=== PATIENT | female | born 1960 | race Hispanic/Latino ===

== ENCOUNTER 2016-09-17 06:02 | Day surgery (SDC) | payer MEDICARE, MEDICAID ==
[2016-09-17 06:51] VITALS: BMI 27.4
[2016-09-17] MEDS ORDERED: Propofol 10 mg/ml Inj (20 ML) ONE ×2 (08:04→08:25)
[2016-09-17] MEDS ORDERED: Lactated Ringer's 500 ML IV ONE (08:10)
[2016-09-17 12:55] VITALS: TEMP 97
[2016-09-17 13:06] VITALS: BP 114/72; PULSE 70; RESP 14; O2SAT 98
== END 2016-09-17 09:50 | disposition home or self-care (01) ==
LOC: C.ENDO 06:02
PROVIDERS: ATTEND Internal Medicine Gastroenterology
DX: Z12.11 Encounter for screening for malignant neoplasm of colon (principal); D12.2 Benign neoplasm of ascending colon; K63.89 Other specified diseases of intestine; K64.8 Other hemorrhoids; K31.9 Disease of stomach and duodenum, unspecified; J45.909 Unspecified asthma, uncomplicated; M79.7 Fibromyalgia; R51 Headache; F32.9 Major depressive disorder, single episode, unspecified; Z98.51 Tubal ligation status; Z90.49 Acquired absence of other specified parts of digestive tract; Z79.899 Other long term (current) drug therapy

== ENCOUNTER 2018-06-30 08:07 | Emergency (ER) | payer MEDICARE, MEDICAID | END 2018-06-30 10:08 | disposition home or self-care (01) | LOC: C.ER 08:07 ==

== ENCOUNTER 2018-07-04 09:39 | Emergency (ER) | payer MEDICARE, MEDICAID | END 2018-07-04 11:21 | disposition home or self-care (01) | LOC: C.ER 09:39 ==